=== PATIENT | female | born 1975 | race Two or more races ===

== ENCOUNTER 2025-04-05 13:10 | Emergency (ER) | payer OTHER ==
[~2025-04-05] VITALS: Ht 175.3 cm; Wt 74.8 kg
[2025-04-05 13:22] VITALS: BP 135/80; O2SAT 99
[2025-04-05] MEDS ORDERED: KETOROLAC TROMETHAMINE 30 MG VIAL IV ONE (14:45)
[2025-04-05] MEDS ORDERED: FAMOTIDINE/PF 20 MG/2 ML VIAL IV ONE (14:45)
[2025-04-05] MEDS ORDERED: ONDANSETRON HCL 2 MG/ML VIAL IV ONE (14:45)
[2025-04-05] MEDS ORDERED: 0.9 % SODIUM CHLORIDE 1,000 ML IV ONE (14:45)
[2025-04-05] MEDS ORDERED: KETOROLAC TROMETHAMINE 30 MG VIAL ONE (15:45)
[2025-04-05] MEDS ORDERED: ONDANSETRON HCL 2 MG/ML VIAL ONE (15:45)
[2025-04-05] MEDS ORDERED: FAMOTIDINE/PF 20 MG/2 ML VIAL ONE (15:45)
[2025-04-05 16:13] LABS: BASO % 0.2 % (0.1-1.2); EOS # 0.02 (0.04-0.54); EOS % 0.2 % (0.7-7.0); LYMPH # 1.38 (1.18-3.74); LYMPH % 10.5 % (19.3-53.1); MEAN PLATELET VOLUME 9.40 fl (9.4-12.4); MONO # 0.43 (0.24-0.82); MONO % 3.3 % (4.7-12.5); NEUT # 11.29 (1.56-6.13); NEUT % 85.4 % (34.0-71.1); RED CELL DISTRIBUTION WIDTH 13.2 % (11.6-14.4)
[2025-04-05 16:31] LABS: INR 1.03
[2025-04-05 16:38] LABS: ALT/SGPT 23.0 U/L (12-78); AST/SGOT 23.0 U/L (15-37); BILIRUBIN TOTAL 0.57 mg/dL (0.3-1.2); BUN CREA RATIO 19.0 (7.0-25.0); CREATININE SERUM 0.79 mg/dL (0.55-1.02); GFR 77.68; GLOBULINA 3.9 G/DL (2.4-3.5); GLUCOSE FASTING 103.0 mg/dL (65-100); OSMOLALITY SERUM 282.0 MOSM/KG (275-295)
[2025-04-05 17:09] LABS: URINE APPEARANCE Clear; URINE BILIRRUBIN Negative (NEGATIVE); URINE BLOOD Large; URINE COLOR Yellow; URINE GLUCOSE Negative (NEGATIVE); URINE KETONE Negative (NEGATIVE); URINE LEUKOCYTE Trace; URINE NITRATE Negative; URINE PROTEIN Trace (NEGATIVE); URINE UROBILINOGEN 0.2 E.U./dl
[2025-04-05 17:13] LABS: URINE BACTERIA 49.1 uL (0.0-1933); URINE EPITHELIAL CELLS 16.3 uL (0.0-38.8); URINE RBC 176.5 uL (0.0-20.8); URINE WBC 6.9 uL (0.0-23.2)
[2025-04-05 17:24] LABS: URINE CAST 0.00 uL (0.0-1.40)
[2025-04-05] MEDS ORDERED: KETO10TA2 PO (18:50)
[2025-04-05] MEDS ORDERED: ZOFRAN8 MG PO (18:50)
[2025-04-05] MEDS ORDERED: TAMS0.4C PO (18:50)
[2025-04-05] MEDS ORDERED: MACROBID 100 M100 MG PO (18:50)
== END 2025-04-05 20:36 | disposition home or self-care (01) ==
LOC: ER 13:10
DX: N13.39 Other hydronephrosis (principal); N20.1 Calculus of ureter; Z91.013 Allergy to seafood